=== PATIENT | female | born 1955 | race Caucasian/White ===

== ENCOUNTER 2017-09-18 07:02 | Outpatient (CLI) | payer BC | END 2017-09-18 07:03 | disposition home or self-care (01) | LOC: BICULT 07:02 | PROVIDERS: ATTEND Nurse Practitioner Family | DX: R10.11 Right upper quadrant pain (principal); K76.0 Fatty (change of) liver, not elsewhere classified | CPT/HCPCS: 76705 ==

== ENCOUNTER 2025-05-18 08:42 | Inpatient (IN) | payer BC, MEDICARE ==
[2025-05-18] MEDS ORDERED: Pantoprazole 40 MG VIAL ONE (09:15)
[2025-05-18] MEDS ORDERED: Ondansetron PF 4 MG/2 ML Vial ONE ×2 (09:15→16:52)
[2025-05-18 09:48] LABS: Hematocrit 27.4 % (36.0-47.0); Hemoglobin 9.2 g/dL (12.0-16.0); Mean Corpuscular Hemoglobin 32.4 pg (27.0-31.0); Mean Corpuscular Volume 96.5 fL (78.0-98.0); Platelet Count 72 10x3/uL (130-400); Red Blood Cell (RBC) Count 2.84 mill/uL (4.20-5.40); Reflex for Review?? YES; White Blood Cell (WBC) Count 1.86 10x3/uL (4.8-10.8)
[2025-05-18 09:56] LABS: INR-International Normal Ratio 1.5; Prothrombin Time 18.3 sec (12.0-14.7)
[2025-05-18 09:57] LABS: PTT 37.2 sec (22.9-36.1)
[2025-05-18 10:05] LABS: ALT (SGPT) 12 U/L (Less than 34); AST (SGOT) 41 U/L (11-34); Albumin 3.7 g/dL (3.1-4.5); Alkaline Phosphatase 54 U/L (40-110); Anion Gap 16 mmol/L (10-20); BUN (Urea Nitrogen) 16 mg/dL (9.8-20.1); Bilirubin, Total 3.8 mg/dL (0.3-1.2); CK (CPK) 65 U/L (29-168); Calc. Creatinine Clearance 0 mL/min (70-130); Calcium 9.4 mg/dL (7.8-10.44); Carbon Dioxide 19 mmol/L (23-31); Chloride 109 mmol/L (98-107); Globulin 2.8 g/dL (2.4-3.5); Glucose 109 mg/dL (80-115); Lipase 35 U/L (8-78); Potassium 3.8 mmol/L (3.5-5.1); Sodium 140 mmol/L (136-145)
[2025-05-18 10:09] LABS: Troponin I 0.025 ng/mL (< 0.028)
[2025-05-18] MEDS ORDERED: Iopamidol-370 76% 500 ML MDV (1 ML CHARGE) ONE (10:10)
[2025-05-18 10:20] LABS: Ovalocytes SLIGHT = 2-5 cells HPF (0-1); Plasma Cells 2 % (0-0); Platelet Adequacy Comment Platelets Decreased; Polychromasia SLIGHT = 2-3 cells HPF (0-2); Smudge Cells 7.5 %
[2025-05-18 11:58] LABS: Bacteria/HPF None Seen HPF (None Seen); CAUTI Indications for Culture Pelvic or flank pain; Glucose, Urine (Dipstick) Normal (Negative); Leukocyte Negative Leu/uL (Negative); Protein, Urine (Dipstick) Negative (Neg-Trace); RBC/HPF 0-3 HPF (0-3); Specific Gravity, Urine 1.029 (1.002-1.036); WBC/HPF 0-3 HPF (0-3)
[2025-05-18 12:10] LABS: Urine Culture Reflex No No
[2025-05-18] MEDS ORDERED: Melatonin 3 MG TAB PO PRN (13:16)
[2025-05-18] MEDS ORDERED: Ondansetron PF 4 MG/2 ML Vial IVP PRN (13:16)
[2025-05-18 13:36] VITALS: BMI 27.8
[2025-05-18 13:56] LABS: Hematocrit 24.9 % (36.0-47.0); Hemoglobin 8.2 g/dL (12.0-16.0)
[2025-05-18] MEDS ORDERED: PROPOFOL 20 ML ONE (16:30)
[2025-05-18] MEDS ORDERED: Lidocaine 1% PF 5 ML VIAL ONE (16:31)
[2025-05-18] MEDS ORDERED: SUCCINYLCHOLINE/SOD CL,ISO/PF 200 MG/10 ML SYRINGE FS ONE (16:42)
[2025-05-18] MEDS ORDERED: Electrolyte Replacement Protocol 1 EACH FS PRN (16:45)
[2025-05-18] MEDS ORDERED: PHENYLEPHRINE-NS 100 MCG/ML 10 ML SYRINGE ONE (16:53)
[2025-05-18] MEDS: PNEUMOC 20-VAL CONJ-DIP CRM/PF 0.5 ML SYRINGE IM ONE (17:51)
[2025-05-18] MEDS: Octreotide Acetate 1,250 MCG in Sodium Chloride 0.9% 250 ML 250 ML IVPB SCH (17:53)
[2025-05-18] MEDS: Pantoprazole 40 MG VIAL IVP SCH (18:43)
[2025-05-18] MEDS: cefTRIAXone\\ROCEPHIN 1 GM in Sodium Chloride 0.9% 100 ML IVPB SCH (18:43)
[2025-05-18 19:47] LABS: Hematocrit 24.0 % (36.0-47.0); Hemoglobin 8.0 g/dL (12.0-16.0)
[2025-05-18] MEDS ORDERED: Pantoprazole 40 MG VIAL IVP SCH (21:00)
[2025-05-19 00:31] LABS: Hematocrit 22.6 % (36.0-47.0); Hemoglobin 7.4 g/dL (12.0-16.0)
[2025-05-19 06:10] LABS: #Basophils Less than 0.03 10x3/uL (0.0-0.2); #Eosinophils Less than 0.03 10x3/uL (0.0-0.7); #Monocytes 0.11 10x3/uL (0.11-0.59); #Neutrophils 1.00 10x3/uL (1.40-6.50); %Basophils 0.7 % (0.0-1.0); %Eosinophils 0.0 % (0.0-10.0); %Lymphocytes 23.8 % (21.0-51.0); %Monocytes 7.5 % (0.0-10.0); %Neutrophils 68.0 % (42.0-75.0); Hematocrit 21.9 % (36.0-47.0); Hemoglobin 7.1 g/dL (12.0-16.0); Mean Corpuscular Hemoglobin 32.3 pg (27.0-31.0); Mean Corpuscular Volume 99.5 fL (78.0-98.0); Platelet Count 70 10x3/uL (130-400); Red Blood Cell (RBC) Count 2.20 mill/uL (4.20-5.40); White Blood Cell (WBC) Count 1.47 10x3/uL (4.8-10.8)
[2025-05-19 06:14] LABS: Iron 48 ug/dL (50-170); Iron Binding Capacity, Total 246 mcg/dL (265-497)
[2025-05-19 06:21] LABS: ALT (SGPT) 10 U/L (Less than 34); AST (SGOT) 33 U/L (11-34); Albumin 3.1 g/dL (3.1-4.5); Alkaline Phosphatase 45 U/L (40-110); Anion Gap 13 mmol/L (10-20); BUN (Urea Nitrogen) 20 mg/dL (9.8-20.1); Bilirubin, Total 2.3 mg/dL (0.3-1.2); Calc. Creatinine Clearance 69 mL/min (70-130); Calcium 8.1 mg/dL (7.8-10.44); Carbon Dioxide 18 mmol/L (23-31); Chloride 113 mmol/L (98-107); Globulin 2.1 g/dL (2.4-3.5); Glucose 130 mg/dL (80-115); Potassium 4.2 mmol/L (3.5-5.1); Sodium 140 mmol/L (136-145)
[2025-05-19 06:37] LABS: Ferritin 112.05 ng/mL (10-291)
[2025-05-19 06:38] LABS: Hep A IgM AB NONREACTIVE (NonReactive); Hep A IgM S/CO 0.17 S/CO (0-0.79); Hep B Core IgM Index 0.06 S/CO (0-0.79); Hep B Surf Ag NONREACTIVE S/CO (NonReactive); Hep C IgG Ab NONREACTIVE S/CO (NonReactive); Hep C Index 0.12 S/CO (0-0.79)
[2025-05-19 07:49] LABS: Hematocrit 24.4 % (36.0-47.0); Hemoglobin 7.9 g/dL (12.0-16.0)
[2025-05-19] MEDS: Folic Acid 1 MG TAB PO SCH (09:27)
[2025-05-19] MEDS: Multivit, Therapeutic 1 TAB PO SCH (09:27)
[2025-05-19] MEDS: Pantoprazole 40 MG VIAL IVP SCH (10:35)
[2025-05-19] MEDS: Azithromycin 500 MG in Sodium Chloride 0.9% 250 ML 250 ML IVPB SCH (10:35)
[2025-05-19 13:42] LABS: Hematocrit 22.3 % (36.0-47.0); Hemoglobin 7.3 g/dL (12.0-16.0)
[2025-05-19] MEDS: GoLYTELY 4,000 ml Bottle PO SCH (17:06)
[2025-05-19 19:31] LABS: Hematocrit 26.6 % (36.0-47.0); Hemoglobin 8.7 g/dL (12.0-16.0)
[2025-05-19] MEDS: Acetaminophen 325 MG TAB PO PRN (21:45)
[2025-05-20 06:21] LABS: ALT (SGPT) 13 U/L (Less than 34); AST (SGOT) 41 U/L (11-34); Albumin 3.3 g/dL (3.1-4.5); Alkaline Phosphatase 40 U/L (40-110); Anion Gap 12 mmol/L (10-20); BUN (Urea Nitrogen) 23 mg/dL (9.8-20.1); Bilirubin, Total 1.8 mg/dL (0.3-1.2); Calc. Creatinine Clearance 72 mL/min (70-130); Calcium 7.5 mg/dL (7.8-10.44); Carbon Dioxide 19 mmol/L (23-31); Chloride 111 mmol/L (98-107); Globulin 2.0 g/dL (2.4-3.5); Glucose 112 mg/dL (80-115); Potassium 3.4 mmol/L (3.5-5.1); Sodium 139 mmol/L (136-145)
[2025-05-20 06:50] LABS: Hematocrit 21.2 % (36.0-47.0); Hemoglobin 7.0 g/dL (12.0-16.0); Mean Corpuscular Hemoglobin 33.0 pg (27.0-31.0); Mean Corpuscular Volume 100.0 fL (78.0-98.0); Platelet Count 80 10x3/uL (130-400); Red Blood Cell (RBC) Count 2.12 mill/uL (4.20-5.40); White Blood Cell (WBC) Count 3.94 10x3/uL (4.8-10.8)
[2025-05-20 07:40] LABS: Anisocytosis SLIGHT = 6-15 cells HPF (0-5); Macrocytosis SLIGHT = 6-15 cells HPF (0-5); Ovalocytes SLIGHT = 2-5 cells HPF (0-1); Platelet Adequacy Comment Platelets Decreased; Polychromasia SLIGHT = 2-3 cells HPF (0-2); Smudge Cells 10.9 %
[2025-05-20] MEDS ORDERED: PROPOFOL 40 ML ONE (07:56)
[2025-05-20] MEDS ORDERED: PHENYLEPHRINE-NS 100 MCG/ML 10 ML SYRINGE ONE (08:56)
[2025-05-20] MEDS: Pantoprazole 40 MG VIAL IVP SCH (10:18)
[2025-05-20] MEDS: Potassium Phosphate 30 MMOL in Sodium Chloride 0.9% 250 ML 250 ML IVPB SCH (10:18)
[2025-05-20 20:29] VITALS: BP 127/60; TEMP 98.7
[2025-05-20 22:23] LABS: Hematocrit 34.9 % (36.0-47.0); Hemoglobin 11.8 g/dL (12.0-16.0)
[2025-05-21 13:47] LABS: dsDNA IgG Antibody 7.1 IU/mL (<10 Negative)
[2025-05-21 14:24] LABS: ANA Symphony (Qualitative) Negative (Negative); ANA Symphony (Quantitative) Less than 0.1 Ratio (< 0.7 Negative)
[2025-05-21 14:56] LABS: EliA Vaculitis New Method **** NEW METHOD ****; Mitochondrial Ab 1.1 U/mL (<4 Negative)
[2025-05-21 15:14] LABS: Smooth Muscle Total ABS 4.0 Units (0-19)
[2025-05-21] MEDS ORDERED: Thiamine 100 MG TAB PO SCH (16:45)
== END 2025-05-20 22:54 | disposition home or self-care (01) | DRG 393 ==
LOC: ERS 08:42 → OBS 11:17
PROVIDERS: ADMIT Internal Medicine; ATTEND Internal Medicine
PROC: 0DJ08ZZ Inspection of Upper Intestinal Tract, Via Natural or Artificial Opening Endoscopic (ICD-10-PCS; principal; 2025-05-18)
PROC: 3E03329 Introduction of Other Anti-infective into Peripheral Vein, Percutaneous Approach (ICD-10-PCS; 2025-05-18)
PROC: 0DBK8ZZ Excision of Ascending Colon, Via Natural or Artificial Opening Endoscopic (ICD-10-PCS; 2025-05-20)
PROC: 0DBH8ZZ Excision of Cecum, Via Natural or Artificial Opening Endoscopic (ICD-10-PCS; 2025-05-20)
PROC: 30233N1 Transfusion of Nonautologous Red Blood Cells into Peripheral Vein, Percutaneous Approach (ICD-10-PCS; 2025-05-20)
DX: K64.8 Other hemorrhoids (principal); J18.9 Pneumonia, unspecified organism; K29.71 Gastritis, unspecified, with bleeding; D61.818 Other pancytopenia; K76.6 Portal hypertension; D62 Acute posthemorrhagic anemia; K92.0 Hematemesis; I10 Essential (primary) hypertension; E78.00 Pure hypercholesterolemia, unspecified; F10.90 Alcohol use, unspecified, uncomplicated; E80.6 Other disorders of bilirubin metabolism; R16.1 Splenomegaly, not elsewhere classified; I86.8 Varicose veins of other specified sites; K63.5 Polyp of colon; K31.89 Other diseases of stomach and duodenum; K70.10 Alcoholic hepatitis without ascites; E89.0 Postprocedural hypothyroidism; Z79.890 Hormone replacement therapy; Z79.899 Other long term (current) drug therapy; Z98.890 Other specified postprocedural states
CPT/HCPCS: 36415; 36430; 71045; 74177; 76705; 80053; 80074; 80307; 81001; 82103; 82105; 82390; 82550; 82728; 83516; 83540; 83550; 83605; 83690; 84100; 84484; 85025; 85060; 85610; 85730; 86015; 86038; 86225; 86850; 86900; 86901; 90471; 90677; 93005; 96374; 96375; G0009; J0456; J0696; J1100; J2250; J2354; J2405; J2470; J2704; J3411; J7030; J7050; P9016; Q9967